=== PATIENT | female | born 1945 | race Caucasian/White ===

== ENCOUNTER 2017-01-01 09:32 | Outpatient (CLI) ==
--- NOTE | 2017-01-01 09:52 | DI ---
EXAM: Views of the right knee HISTORY: Pain swelling TECHNIQUE: AP lateral, sunrise views of the right knee were obtained. FINDINGS: The joint spaces are normal. No acute fractures are seen. There is a small suprapatella r joint effusion. There is mild deviation of the patella laterally. IMPRESSION: No acute fractures are seen within the right knee. There is a small joint effusion.
== END 2017-01-01 09:33 | disposition home or self-care (01) ==
LOC: RAD 09:32
PROVIDERS: ATTEND Family Medicine
DX: M25.561 Pain in right knee (principal)

== ENCOUNTER 2017-02-18 11:59 | Outpatient (CLI) ==
--- NOTE | 2017-02-18 15:11 | MRI ---
EXAM: MRI of the right knee without contrast COMPARISON: Right knee radiographs 01/01/2017. HISTORY: Knee pain behind the knee cap. No known injury. Swelling. TECHNIQUE: Multiplanar noncontrast MR images of the right knee were acquired using a 1.2 [place] magn et. FINDINGS: There is intrasubstance degeneration medial meniscus. Minimal blunting of the free edge of the medial meniscus at the body through the posterior horn related to degenerative fraying versus degenerative type tear. Intrasubstance degeneration of the lateral meniscus without a surfacing tear. Intact anterior and posterior cruciate ligament fibers are identified. Inversion recovery hyperinte nse signal along the anterior cruciate ligament related to mucoid degeneration versus a minimal spra in. Sprains with scarring of the medial and lateral collateral ligament with intact fibers identifi ed. Posterolateral corner ligaments are intact. Mild distal quadriceps minimal patellar tendinosis . No abnormal subluxation of the patella. Subcutaneous edema anteriorly with a T2 hyperintense col lection measuring 4 mm in thickness overlying the patella which may represent prepatellar bursitis v ersus evolving hematoma in the setting of direct trauma that site. Thinning of the cartilage. The patella most pronounced along the medial/odd facet with subchondral edema/cystic change. Mild marrow heterogeneity which may represent nonspecific red marrow reconvers ion/hyperplasia. Moderate thinning of the cartilage in the medial compartment. Thinning of the cart ilage along the far posterior portion of the lateral femoral condyle with subchondral cystic change. No evidence of an acute fracture. There is a large joint effusion. Tubular filling defects with T 2 hypointense signal extending throughout the suprapatellar bursa as well as along the anterior, pos terior and lateral aspect of the joint. This may represent evolving blood clot in the setting of he marthrosis though differential considerations include synovitis or less likely a process such as pig mented villonodular synovitis. Slit-like popliteal cyst with adjacent semimembranosus - tibial love ateral ligament bursitis. There is edema involving the fat within the popliteal fossa, nonspecific. IMPRESSION: 1. Large joint effusion. Filling defects throughout the joint which may represent evolving blood c lot in the setting of hemarthrosis, synovitis or less likely a process such as pigmented villonodula r synovitis. Correlation with joint aspiration and clinical history is recommended. 2. Subcutaneous edema with a thin subcutaneous fluid collection overlying the patella related to pr epatellar bursitis or hematoma in the setting of direct trauma. 3. Degenerative fraying/degenerative type tear of the medial meniscus. 4. Tricompartmental osteoarthrosis. Patchy marrow signal changes which may represent nonspecific r ed marrow reconversion/hyperplasia. This can be seen in the setting of anemia, tobacco use, obesity and other processes. 5. Small popliteal cyst. Semimembranosus - tibial collateral ligament bursitis. 6. Sprains with scarring of the medial and lateral collateral ligaments. Mucoid degeneration versu s minimal sprain of the anterior cruciate ligament with intact fibers identified.
== END 2017-02-18 12:00 | disposition home or self-care (01) ==
LOC: RAD 11:59
PROVIDERS: ATTEND Family Medicine
DX: M25.561 Pain in right knee (principal); M25.461 Effusion, right knee

== ENCOUNTER 2017-07-09 09:44 | Outpatient (CLI) ==
--- NOTE | 2017-07-09 11:42 | DI ---
EXAM: Four views of the cervical spine HISTORY: Neck pain. COMPARISON: None FINDINGS: There is no acute compression fracture. There is 0.2 cm of retrolisthesis of C5 on C6 with focal narrowing. There is scattered moderate facet arthropathy. There is mild reversal of the cervi tin lordosis at the level of focal degenerative change. Odontoid process is poorly evaluated. There is mild right neural foraminal narrowing at C5-C6. The odontoid process is unremarkable. IMPRESSION: 1. No acute compression fracture. 2. 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
== END 2017-07-09 09:45 | disposition home or self-care (01) ==
LOC: RAD 09:44
PROVIDERS: ATTEND Family Medicine
DX: M54.2 Cervicalgia (principal)